=== PATIENT | female | born 1955 | race Asian ===

== ENCOUNTER 2016-12-06 12:53 | Inpatient (IN) | payer MEDICAID ==
[~2016-12-06] VITALS: Ht 162.6 cm; Wt 84.8 kg
[2016-12-06 14:48] LABS: BASOPHIL % 0.7 % (0-2); PLATELET COUNT 320 x10^3mcL (130-400); RED CELL DISTRIBUTION WIDTH 12.8 % (11.5-14.5)
[2016-12-06 14:54] LABS: CALCIUM 9.2 mg/dL (8.5-10.1); CARBON DIOXIDE 26.8 mmol/L (21-32); CHLORIDE SERUM 104 mmol/L (98-107); CREATININE SERUM 0.8 mg/dL (0.6-1.0); GFR1 > 60 mL/min; GLUCOSE SERUM 114 mg/dL (74-106); POTASSIUM SERUM 3.7 mmol/L (3.5-5.1); SODIUM SERUM 142 mmol/L (136-145)
[2016-12-06 14:59] LABS: ALBUMIN 3.6 g/dL (3.4-5.0); ALKALINE PHOSPHATASE 96 U/L (46-116); ALT/SGPT 33 U/L (14-59); AST/SGOT 20 U/L (15-37); BILIRUBIN TOTAL 0.43 mg/dL (0.20-1.00); TOTAL PROTEIN, SERUM 8.1 g/dL (6.4-8.2)
[2016-12-06] MEDS ORDERED: LEVEMIR100 U/M1 (16:57)
[2016-12-06] MEDS ORDERED: SIMVASTATIN10 M1 (16:57)
[2016-12-06] MEDS ORDERED: HUMALOG100 U/ML (16:57)
[2016-12-06] MEDS ORDERED: LISINOPRIL2.5 MG (16:58)
[2016-12-06] MEDS ORDERED: JANUVIA25 M1 (16:58)
[2016-12-06 17:10] LABS: MAGNESIUM 2.1 mg/dL (1.8-2.4); PHOSPHOROUS 3.6 mg/dL (2.5-4.9)
[2016-12-06 17:14] LABS: CHOLESTEROL/HDL RATIO 2.5
[2016-12-06 17:18] LABS: FREE T4 1.45 ng/dL (0.76-1.46); FREE THYROXINE INDEX 4.2 ug/dL (1.4-4.5); T4(THYROXINE) 12.7 ug/dL (4.7-13.3)
[2016-12-06 17:20] LABS: T3 TOTAL 1.28 ng/mL
[2016-12-06 18:02] VITALS: BP 131/90
[2016-12-06] MEDS ORDERED: LISINOPRIL20 MG PO ×2 (18:44→19:13)
[2016-12-06] MEDS ORDERED: ASPIR 8181 MG PO (19:12)
[2016-12-06] MEDS ORDERED: SIMVASTATIN10 M1 PO (19:13)
[2016-12-06] MEDS ORDERED: JANUVIA25 M1 PO (19:13)
[2016-12-06] MEDS ORDERED: LEVEMIR100 U/M1 SC (19:13)
[2016-12-06 19:35] LABS: microscopic required? NO
[2016-12-06 19:45] LABS: urine erythrocyte NEGATIVE (NEGATIVE)
[2016-12-06 19:52] LABS: AMPHETAMINE QUAL UR NONE DETECTED (NEG <=1000)
[2016-12-06 21:48] VITALS: BP 117/68
[2016-12-07 06:26] VITALS: BP 125/53
[2016-12-07 07:00] LABS: BASOPHIL % 0.7 % (0-2); PLATELET COUNT 294 x10^3mcL (130-400); RED CELL DISTRIBUTION WIDTH 13.1 % (11.5-14.5)
[2016-12-07 07:11] LABS: CALCIUM 8.5 mg/dL (8.5-10.1); CARBON DIOXIDE 28.2 mmol/L (21-32); CHLORIDE SERUM 108 mmol/L (98-107); CREATININE SERUM 0.8 mg/dL (0.6-1.0); GFR1 > 60 mL/min; GLUCOSE SERUM 113 mg/dL (74-106); PHOSPHOROUS 3.8 mg/dL (2.5-4.9); POTASSIUM SERUM 3.8 mmol/L (3.5-5.1); SODIUM SERUM 142 mmol/L (136-145)
[2016-12-07 10:28] VITALS: BP 126/55
[2016-12-07 13:57] VITALS: BP 130/55
[2016-12-07 17:52] VITALS: BP 102/57
[2016-12-07 20:57] VITALS: BP 129/50
[2016-12-08 05:24] VITALS: BP 121/70
[2016-12-08 09:13] VITALS: BP 143/69
[2016-12-08 13:03] VITALS: BP 133/70
[2016-12-08] MEDS ORDERED: CLINDAMYCIN HC300 MG PO ×2 (16:34→20:08)
[2016-12-08] MEDS ORDERED: BD LACTINEX1.4 MG PO ×2 (16:36→20:08)
[2016-12-08] MEDS ORDERED: NORCO1 TA2 PO (16:38)
[2016-12-08] MEDS ORDERED: COLACE100 MG PO ×2 (16:39→20:08)
[2016-12-08 16:45] VITALS: BP 146/65
[2016-12-08 17:16] VITALS: BP 146/65
[2016-12-08] MEDS ORDERED: BG FS ×2 (19:53→20:08)
[2016-12-08] MEDS ORDERED: LEVEMIR100 U/M1 SC ×3 (19:53→20:08)
[2016-12-08] MEDS ORDERED: HUMALOG100 U/ML IJ ×2 (19:53→20:08)
[2016-12-08] MEDS ORDERED: LANCET DEVICE1 EACH MC ×2 (19:55→20:08)
[2016-12-08 19:57] VITALS: Ht 162.6 cm; Wt 84.8 kg
[2016-12-08] MEDS ORDERED: ASPIR 8181 MG PO (20:08)
[2016-12-08] MEDS ORDERED: LISINOPRIL20 MG PO (20:08)
[2016-12-08] MEDS ORDERED: JANUVIA25 M1 PO (20:08)
[2016-12-08] MEDS ORDERED: SIMVASTATIN10 M1 PO (20:08)
== END 2016-12-08 20:36 | disposition home or self-care (01) | DRG 243 ==
LOC: ED 12:53 → DU 15:48
PROVIDERS: Emergency Medicine; ADMIT Family Medicine
PROC: 0JBQ0ZZ Excision of Right Foot Subcutaneous Tissue and Fascia, Open Approach (ICD-10-PCS; principal; 2016-12-06)
DX: K21.9 Gastro-esophageal reflux disease without esophagitis (principal); D68.69 Other thrombophilia; E11.51 Type 2 diabetes mellitus with diabetic peripheral angiopathy without gangrene; I11.9 Hypertensive heart disease without heart failure; E11.621 Type 2 diabetes mellitus with foot ulcer; E11.65 Type 2 diabetes mellitus with hyperglycemia; L97.511 Non-pressure chronic ulcer of other part of right foot limited to breakdown of skin; L03.031 Cellulitis of right toe; T14.90 Injury, unspecified; G83.11 Monoplegia of lower limb affecting right dominant side; M21.371 Foot drop, right foot; E66.9 Obesity, unspecified; Z68.32 Body mass index [BMI] 32.0-32.9, adult; Z79.4 Long term (current) use of insulin; Z79.82 Long term (current) use of aspirin; V89.2XXS Person injured in unspecified motor-vehicle accident, traffic, sequela
CPT/HCPCS: 82962; 83880; 84439; J0696; J1815; J3490; J7030; Q0092